=== PATIENT | female | born 1980 | race Two or more races ===

== ENCOUNTER 2017-01-05 10:08 | Observation (INO) | payer OTHER ==
[~2017-01-05] VITALS: Ht 154.9 cm; Wt 66.2 kg
[2017-01-05] MEDS ORDERED: TERBUTALINE SULFATE 1 MG/ML 1ML VIAL SC ONE (11:00)
== END 2017-01-05 11:40 | disposition home or self-care (01) | DRG 566 ==
LOC: LDRP 10:08
PROVIDERS: ADMIT Obstetrics & Gynecology; ATTEND Obstetrics & Gynecology
DX: O62.9 Abnormality of forces of labor, unspecified (principal); Z3A.00 Weeks of gestation of pregnancy not specified
CPT/HCPCS: 59025; 81002; 96372; G0378; J3105